=== PATIENT | female | born 1990 | race African-American/Black ===

== ENCOUNTER 2023-10-07 17:13 | Emergency (ER) | payer OTHER, SELFPAY ==
[2023-10-07 17:46] VITALS: BP 124/93; PULSE 72; RESP 20; TEMP 36.6; O2SAT 97; BMI 33.6
== END 2023-10-07 19:57 | disposition left against medical advice (07) ==
PROVIDERS: Emergency Provider Emergency Medicine
DX: R10.9 Unspecified abdominal pain (principal)
CPT/HCPCS: 81003; 81025; 99282